=== PATIENT | male | born 1965 | race Caucasian/White ===

== ENCOUNTER 2023-05-05 07:50 | Emergency (ER) | payer BC ==
[2023-05-05 08:25] VITALS: BP 136/84; PULSE 82; RESP 18; BMI 30.5
[2023-05-05 09:41] LABS: BILIRUBIN,TOTAL 0.6 mg/dl (0.2-1); CALCIUM 9.3 mg/dl (8.5-10.1); CREATININE 0.7 mg/dl (0.6-1.3); POTASSIUM 4.5 mmol/L (3.5-5.1); TOT PROT 6.4 g/dl (6.4-8.2)
[2023-05-05 10:09] LABS: VENOUS BASE EXCESS 1.3 mmol/L (-2-2); VENOUS O2 SATURATION 83.9 % (70-80); VENOUS PCO2 45.1 mmHg (38-52); VENOUS PH 7.391 (7.310-7.410)
[2023-05-05] MEDS ORDERED: SODIUM CHLORIDE 0.9% 500 ML INFUS.BAG IV ONE (10:26)
[2023-05-05 11:22] VITALS: TEMP 98.1
== END 2023-05-05 11:34 | disposition home or self-care (01) ==
LOC: FER 07:50
DX: R73.9 Hyperglycemia, unspecified (principal)
CPT/HCPCS: 36415; 80053; 81003; 81015; 82803; 99284-25